=== PATIENT | female | born 1965 ===

== ENCOUNTER → 2016-07-27 | Outpatient (CLI) | payer MEDICARE ==
[~2016-07-27] MED LIST: AMIT50TA PO; ATOR40TA59 PO; CLON1TAB3 PO; GABA-586 PO; INSU100I13 SQ; LISI10TA2 PO; METF10002 PO; SERT100T PO; TRAZ100T12 PO
[2016-07-27 15:09] LABS: GFR 58.5
== END | disposition home or self-care (01) ==
LOC: MRI 14:01
PROVIDERS: ATTEND Neurological Surgery
DX: D32.9 Benign neoplasm of meninges, unspecified (principal)
CPT/HCPCS: 36415; 82565; 84520

== ENCOUNTER → 2016-08-02 | Outpatient (CLI) | payer MEDICARE ==
[~2016-08-02] MED LIST changes: +GADOBUTROL 10 MMOL/10 ML VIAL IV ONE
--- NOTE | 2016-08-02 16:42 | RAD ---
PROCEDURE MRI brain without and with contrast. HISTORY Meningioma follow-up, craniotomy TECHNIQUE Multiplanar, multi sequential pre and post contrast MR imaging was performed of the brain. Contrast: 8 cc [facility] COMPARISON September 13, 2011 FINDINGS There again has been right frontal parietal craniotomy. There is greater degree of encephalomalacia with cortical involvement of the right frontal lobe underlying the resection cavity, increased nonenhancing T2 and FLAIR hyperintense signal abnormality. There is no nodular parenchymal or leptomeningeal enhancement in this area. Ventricular size is within limits. There is other mild T2 and FLAIR hyperintense signal abnormality near the frontal horns bilaterally. There is no new midline shift. There is preservation of the major arterial intracranial flow voids at the skull base. There is patchy mild bilateral ethmoid air cell and frontal sinus mucosal thickening. Mastoid air cells are aerated. 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 There is no restricted diffusion suggestive of recent infarct or cytotoxic edema. Mastoid air cells are aerated. There is again what likely represents sequela of an old lacunar infarct of the inferior right cerebellum. IMPRESSION There has been right frontal parietal craniotomy, no abnormal nodular parenchymal or leptomeningeal enhancement. Comparing with the August 2011 exam, there is a greater degree of encephalomalacia with cortical involvement of the right frontal lobe underlying craniotomy site with increased T2 and FLAIR hyperintense signal abnormality which may be due to gliosis. Electronically signed by: Mitchel Carrion MD (Aug 02, 2016 16:40:45)
== END | disposition home or self-care (01) ==
LOC: MRI 15:03
PROVIDERS: ATTEND Neurological Surgery
DX: G93.89 Other specified disorders of brain (principal); J34.89 Other specified disorders of nose and nasal sinuses
CPT/HCPCS: 70553; A9585